=== PATIENT | male | born 1995 | race Caucasian/White ===

== ENCOUNTER 2016-05-05 10:18 | Emergency (ER) | payer OTHER ==
[2016-05-05] MEDS ORDERED: IPRATROPIUM-ALBUTEROL 3 ML NEB INHALATION STA (10:25)
--- NOTE | 2016-05-05 10:27 | ED ---
SOB HPI - General Stated Complaint: ASTHMA, DAVID Time Seen by Provider: 05/05/16 10:22 Source: patient, RN notes reviewed Mode of arrival: ambulatory Limitations: no limitations - History of Present Illness Initial Comments: 21-year-old male presents emergency Department chief complaint shortness of breath. Patient states he woke up 2 hours ago with shortness of breath. Patient states that he has asthma and is a daily smoker. Patient states that his girlfriend throughout his inhaler on accident. Patient states he does not have his rescue inhaler. Patient states he had no problems yesterday denies any fever, chills. Denies any runny nose, congestion, productive cough. Patient states he has no difficulty swallowing he states he just wheezing and having shortness of breath. Patient denies any abdominal complaints including nausea, vomiting diarrhea constipation. Patient is not taking any other medications prescribed or [id number]. He does have an ALLERGY to amoxicillin. - Related Data Previous Rx's Medication Instructions Recorded Albuterol Nebulized [Ventolin 2.5 mg INHALATION Q4H PRN #25 nebu 05/05/16 Nebulized] methylPREDNISolone [Medrol Dose 4 mg PO DIRECTED #1 pack 05/05/16 Pack] Allergies Allergy/AdvReac Type Severity Reaction Status Date / Time amoxicillin AdvReac Unknown Verified 01/02/16 11:16 Childhood Review of Systems ROS Statement: Those systems with pertinent positive or pertinent negative responses have been documented in the HPI. ROS Other: All systems not noted in ROS Statement are negative. Past Medical History Past Medical History: Asthma Additional Past Medical History / Comment(s): scoliosis History of Any Multi-Drug Resistant Organisms: None Reported Past Surgical History: No Surgical Hx Reported Past Psychological History: No Psychological Hx Reported Smoking Status: Former smoker Past Alcohol Use History: Occasional Past Drug Use History: None Reported General Exam General appearance: alert, in no apparent distress Head exam: Present: atraumatic, normocephalic, normal inspection Eye exam: Present: normal appearance, PERRL, EOMI. Absent: scleral icterus, conjunctival injection, periorbital swelling ENT exam: Present: normal exam, normal oropharynx, mucous membranes moist, TM's normal bilaterally, normal external ear exam Neck exam: Present: normal inspection, full ROM. Absent: tenderness, meningismus, lymphadenopathy Respiratory exam: Present: respiratory distress (Mild), wheezes (Bilateral throughout), accessory muscle use (Minimal). Absent: normal lung sounds bilaterally, rales, rhonchi, stridor Cardiovascular Exam: Present: normal rhythm, tachycardia, normal heart sounds. Absent: systolic murmur, diastolic murmur, rubs, gallop, clicks Neurological exam: Present: alert, oriented X3, CN II-XII intact Skin exam: Present: warm, dry, intact, normal color. Absent: rash Course Vital Signs 05/05/16 05/05/16 05/05/16 10:28 10:33 10:34 Temperature 98.7 F Pulse Rate 123 H 123 H Respiratory 26 H 28 H Rate Blood Pressure 134/69 O2 Sat by Pulse 92 L Oximetry 05/05/16 10:46 Temperature Pulse Rate 120 H Respiratory Rate Blood Pressure O2 Sat by Pulse Oximetry Medical Decision Making - Medical Decision Making 21-year-old male presented emergency department for asthma, shortness breath. Patient is a daily smoker counseled in detail greater than 3 minutes to stop smoking. Patient states that he feels better after neb treatment and is refusing any other treatment at this time refusing steroid shot, x-ray. Patient understands the risk. Patient was given steroids, inhalers. Disposition Clinical Impression: Asthma exacerbation, Tobacco dependence Disposition: HOME SELF-CARE Condition: Stable Instructions: Asthma (ED) Additional Instructions: Please stop smoking.Please return to the Emergency Department if symptoms worsen or any other concerns. Prescriptions: Albuterol Nebulized [Ventolin Nebulized] 2.5 mg INHALATION Q4H PRN #25 nebu PRN Reason: difficulty in breathing methylPREDNISolone [Medrol Dose Pack] 4 mg PO DIRECTED #1 pack Time of Disposition: 11:06
[2016-05-05 11:23] VITALS: BP 157/74; PULSE 129; RESP 15; TEMP 100.6
== END 2016-05-05 11:26 | disposition home or self-care (01) ==
LOC: EC 10:18
DX: J45.901 Unspecified asthma with (acute) exacerbation (principal); Z87.891 Personal history of nicotine dependence; Z88.0 Allergy status to penicillin
CPT/HCPCS: 94640; 99284

== ENCOUNTER 2020-07-05 07:23 | Emergency (ER) | payer OTHER ==
[2020-07-05 07:32] VITALS: RESP 18
[2020-07-05] MEDS ORDERED: SODIUM CHLORIDE 0.9% 500 ML 500 ML IV ONE (07:44)
[2020-07-05] MEDS ORDERED: SODIUM CHLORIDE 0.9% 1,000 ML IV ONE (07:44)
[2020-07-05] MEDS ORDERED: ONDANSETRON 4 MG/2 ML VIAL IVP STA (07:44)
[2020-07-05] MEDS ORDERED: IBUPROFEN 600 MG TAB PO STA (07:45)
[2020-07-05] MEDS ORDERED: ACETAMINOPHEN TAB 500 MG TAB PO STA (07:45)
--- NOTE | 2020-07-05 07:59 | ED ---
General Adult HPI - General Chief complaint: Upper Respiratory Infection Stated complaint: Headache, Weakness Time Seen by Provider: 07/05/20 07:30 Source: patient, RN notes reviewed, old records reviewed Mode of arrival: ambulatory Limitations: no limitations - History of Present Illness Initial comments: This is a 25-year-old male who presents emergency Department complaining of not feeling well since . Patient states he has been sweating a lot. Patient states he has a cough but has no shortness of breath. Patient states he has vomited a couple times but no diarrhea. Patient denies any loss of taste smile. Patient states he just feels terrible. Patient denies any chest pain. Patient denies any back pain. Patient denies abdominal pain. - Related Data Previous Rx's Medication Instructions Recorded Albuterol Nebulized [Ventolin 2.5 mg INHALATION Q4H PRN #25 nebu 05/05/16 Nebulized] methylPREDNISolone [Medrol Dose 4 mg PO DIRECTED #1 pack 05/05/16 Pack] Allergies Allergy/AdvReac Type Severity Reaction Status Date / Time amoxicillin AdvReac Unknown Verified 07/05/20 07:32 Childhood Review of Systems ROS Statement: Those systems with pertinent positive or pertinent negative responses have been documented in the HPI. ROS Other: All systems not noted in ROS Statement are negative. Past Medical History Past Medical History: Asthma Additional Past Medical History / Comment(s): scoliosis History of Any Multi-Drug Resistant Organisms: MRSA Date of last positivie culture/infection: 2009 MDRO Source:: arm Past Surgical History: No Surgical Hx Reported Past Psychological History: No Psychological Hx Reported Smoking Status: Never smoker Past Alcohol Use History: Occasional Past Drug Use History: None Reported General Exam - General Exam Comments Initial Comments: GENERAL: Patient is well-developed and well-nourished. Patient is nontoxic and well- hydrated and is in mild distress. ENT: Neck is soft and supple. No significant lymphadenopathy is noted. Oropharynx is clear. Moist mucous membranes. Neck has full range of motion without eliciting any pain. EYES: The sclera were anicteric and conjunctiva were pink and moist. Extraocular movements were intact and pupils were equal round and reactive to light. Eyelids were unremarkable. PULMONARY: Unlabored respirations. Good breath sounds bilaterally. No audible rales rhonchi or wheezing was noted. CARDIOVASCULAR: There is a regular rate and rhythm without any murmurs gallops or rubs. ABDOMEN: Soft and nontender with normal bowel sounds. No palpable organomegaly was noted. There is no palpable pulsatile mass. SKIN: Skin is clear with no lesions or rashes and otherwise unremarkable. NEUROLOGIC: Patient is alert and oriented x3. Cranial nerves II through XII are grossly intact. Motor and sensory are also intact. Normal speech, volume and content. Symmetrical smile. MUSCULOSKELETAL: Normal extremities with adequate strength and full range of motion. No lower extremity swelling or edema. No calf tenderness. LYMPHATICS: No significant lymphadenopathy is noted PSYCHIATRIC: Normal psychiatric evaluation. Limitations: no limitations Course Vital Signs 07/05/20 07/05/20 07:29 09:04 Temperature 98.4 F 99.9 F H Pulse Rate 114 H 96 Respiratory 18 18 Rate Blood Pressure 106/75 98/57 O2 Sat by Pulse 97 96 Oximetry Medical Decision Making - Lab Data Result diagrams: 07/05/20 07:51 07/05/20 07:51 Lab Results 07/05/20 07/05/20 07/05/20 Range/Units 07:51 07:51 07:51 WBC 5.4 (3.8-10.6) k/uL RBC 5.32 (4.30-5.90) m/uL Hgb 14.2 (13.0-17.5) gm/dL Hct 42.6 (39.0-53.0) % MCV 80.0 (80.0-100.0) fL MCH 26.7 (25.0-35.0) pg MCHC 33.4 (31.0-37.0) g/dL RDW 12.7 (11.5-15.5) % Plt Count 193 (150-450) k/uL MPV 7.4 Neutrophils % 83 % Lymphocytes % 4 % Monocytes % 4 % Eosinophils % 9 % Basophils % 1 % Neutrophils # 4.5 (1.3-7.7) k/uL Lymphocytes # 0.2 L (1.0-4.8) k/uL Monocytes # 0.2 (0-1.0) k/uL Eosinophils # 0.5 (0-0.7) k/uL Basophils # 0.0 (0-0.2) k/uL Sodium 129 L (137-145) mmol/L Potassium 4.7 (3.5-5.1) mmol/L Chloride 94 L (98-107) mmol/L Carbon Dioxide 27 (22-30) mmol/L Anion Gap 8 mmol/L BUN 14 (9-20) mg/dL Creatinine 1.03 (0.66-1.25) mg/dL Est GFR (CKD-EPI)AfAm >90 (>60 ml/min/1.73 sqM) Est GFR (CKD-EPI)NonAf >90 (>60 ml/min/1.73 sqM) Glucose 141 H (74-99) mg/dL Calcium 8.7 (8.4-10.2) mg/dL Total Bilirubin 0.4 (0.2-1.3) mg/dL AST 34 (17-59) U/L ALT 27 (4-49) U/L Alkaline Phosphatase 102 (38-126) U/L Total Protein 6.9 (6.3-8.2) g/dL Albumin 4.2 (3.5-5.0) g/dL Coronavirus (PCR) Not Detected (Not Detectd) Influenza Type A RNA (Not Detectd) Influenza Type B (PCR) (Not Detectd) 07/05/20 Range/Units 08:03 WBC (3.8-10.6) k/uL RBC (4.30-5.90) m/uL Hgb (13.0-17.5) gm/dL Hct (39.0-53.0) % MCV (80.0-100.0) fL MCH (25.0-35.0) pg MCHC (31.0-37.0) g/dL RDW (11.5-15.5) % Plt Count (150-450) k/uL MPV Neutrophils % % Lymphocytes % % Monocytes % % Eosinophils % % Basophils % % Neutrophils # (1.3-7.7) k/uL Lymphocytes # (1.0-4.8) k/uL Monocytes # (0-1.0) k/uL Eosinophils # (0-0.7) k/uL Basophils # (0-0.2) k/uL Sodium (137-145) mmol/L Potassium (3.5-5.1) mmol/L Chloride (98-107) mmol/L Carbon Dioxide (22-30) mmol/L Anion Gap mmol/L BUN (9-20) mg/dL Creatinine (0.66-1.25) mg/dL Est GFR (CKD-EPI)AfAm (>60 ml/min/1.73 sqM) Est GFR (CKD-EPI)NonAf (>60 ml/min/1.73 sqM) Glucose (74-99) mg/dL Calcium (8.4-10.2) mg/dL Total Bilirubin (0.2-1.3) mg/dL AST (17-59) U/L ALT (4-49) U/L Alkaline Phosphatase (38-126) U/L Total Protein (6.3-8.2) g/dL Albumin (3.5-5.0) g/dL Coronavirus (PCR) (Not Detectd) Influenza Type A RNA Not Detected (Not Detectd) Influenza Type B (PCR) Not Detected (Not Detectd) Disposition Clinical Impression: Viral syndrome, Hyponatremia Disposition: HOME SELF-CARE Condition: Good Instructions (If sedation given, give patient instructions): Viral Syndrome (ED) Additional Instructions: Patient should take Zofran as prescribed Is patient prescribed a controlled substance at d/c from ED?: No Referrals: Tori Last MD [Primary Care Provider] - 1-2 days Time of Disposition: 09:52
[2020-07-05 08:04] LABS: Basophils % (A) 1 %; Eosinophils # (A) 0.5 k/uL (0-0.7); Eosinophils % (A) 9 %; HCT 42.6 % (39.0-53.0); HGB 14.2 gm/dL (13.0-17.5); Lymphocytes # (A) 0.2 k/uL (1.0-4.8); Lymphocytes % (A) 4 %; MCH 26.7 pg (25.0-35.0); MCHC 33.4 g/dL (31.0-37.0); Mean Platelet Volume 7.4; Monocytes # (A) 0.2 k/uL (0-1.0); Monocytes % (A) 4 %; Neutrophils # (A) 4.5 k/uL (1.3-7.7); Neutrophils % (A) 83 %; Platelet Count 193 k/uL (150-450); RBC 5.32 m/uL (4.30-5.90); RDW 12.7 % (11.5-15.5); WBC 5.4 k/uL (3.8-10.6)
[2020-07-05 08:19] LABS: ALT 27 U/L (4-49); AST 34 U/L (17-59); African American GFR (CKD) >90 (>60 ml/min/1.73 sqM); Albumin 4.2 g/dL (3.5-5.0); Alkaline Phosphatase 102 U/L (38-126); Anion Gap 8 mmol/L; Blood Urea Nitrogen 14 mg/dL (9-20); Calcium 8.7 mg/dL (8.4-10.2); Carbon Dioxide 27 mmol/L (22-30); Chloride 94 mmol/L (98-107); Glucose 141 mg/dL (74-99); Non-African American GFR(CKD) >90 (>60 ml/min/1.73 sqM); Potassium 4.7 mmol/L (3.5-5.1); Sodium 129 mmol/L (137-145); Total Bilirubin 0.4 mg/dL (0.2-1.3); Total Protein 6.9 g/dL (6.3-8.2)
--- NOTE | 2020-07-05 09:41 | XR ---
EXAMINATION TYPE: XR chest 2V DATE OF EXAM: 07/05/2020 COMPARISON: NONE HISTORY: Shortness of breath and weakness. TECHNIQUE: Frontal and lateral views of the chest are obtained. FINDINGS: There is chronic parenchymal changes bilaterally without suspicious focal air space opacit y, pleural effusion, or pneumothorax seen. The cardiac silhouette size is within normal limits. Th e osseous structures are intact. IMPRESSION: No acute cardiopulmonary process.
[2020-07-05] MEDS ORDERED: ONDANSETRON 4 MG ODT STARTER PACK 2 TAB BTL PO STA (09:53)
[2020-07-05 10:14] VITALS: BP 148/78; PULSE 89; TEMP 99
== END 2020-07-05 10:12 | disposition home or self-care (01) ==
LOC: EC 07:23
DX: B34.9 Viral infection, unspecified (principal); E87.1 Hypo-osmolality and hyponatremia; R61 Generalized hyperhidrosis; J45.909 Unspecified asthma, uncomplicated; Z79.51 Long term (current) use of inhaled steroids; Z20.822 Contact with and (suspected) exposure to COVID-19
CPT/HCPCS: 36415; 80053; 85025; 87502; 87635; 71046; 99285; 96374; 96361; J2405; S0119

== ENCOUNTER 2020-08-23 | Emergency (ER) | payer OTHER | END 2020-08-23 16:14 | disposition left against medical advice (07) ==

== ENCOUNTER 2020-10-03 04:55 | Emergency (ER) | payer OTHER ==
[2020-10-03 05:15] VITALS: BP 132/85; PULSE 76; RESP 20; TEMP 98.1
--- NOTE | 2020-10-03 05:20 | ED ---
Nausea/Vomiting/Diarrhea HPI - General Chief complaint: Nausea/Vomiting/Diarrhea Stated complaint: NVD Time Seen by Provider: 10/03/20 05:00 Source: patient, RN notes reviewed, old records reviewed Mode of arrival: ambulatory - History of Present Illness Initial comments: This is a 25-year-old male to ER today. He presents today for evaluation regards to persistent nausea with diarrhea. Diarrhea this significant. 3 days of diarrhea mucousy in general. Patient has no fevers. No sick contacts no travel she'll family members with similar complaint. Patient is Rema had c oronavirus denies possibility of coronavirus currently and no recent antibiotic use. Afebrile with no abdominal pain MD complaint: nausea, diarrhea -: days(s) (3) Description of Diarrhea: water, mucous Associated Abdominal Pain: No Radiation: none Severity: moderate Severity scale (1-10): 6 Quality: cramping Consistency: constant Improves with: none Worsens with: none Context: other (none) Associated Symptoms: loss of appetite, weakness - Related Data Previous Rx's Medication Instructions Recorded Albuterol Nebulized [Ventolin 2.5 mg INHALATION Q4H PRN #25 nebu 05/05/16 Nebulized] methylPREDNISolone [Medrol Dose 4 mg PO DIRECTED #1 pack 05/05/16 Pack] Allergies Allergy/AdvReac Type Severity Reaction Status Date / Time amoxicillin AdvReac Unknown Verified 10/03/20 05:15 Childhood Review of Systems ROS Statement: Those systems with pertinent positive or pertinent negative responses have been documented in the HPI. ROS Other: All systems not noted in ROS Statement are negative. Past Medical History Past Medical History: Asthma Additional Past Medical History / Comment(s): scoliosis History of Any Multi-Drug Resistant Organisms: MRSA Date of last positivie culture/infection: 2009 MDRO Source:: arm Past Surgical History: No Surgical Hx Reported Past Psychological History: No Psychological Hx Reported Smoking Status: Never smoker Past Alcohol Use History: Occasional Past Drug Use History: None Reported General Exam General appearance: alert, in no apparent distress Head exam: Present: atraumatic, normocephalic, normal inspection Eye exam: Present: normal appearance, PERRL, EOMI. Absent: scleral icterus, conjunctival injection, periorbital swelling ENT exam: Present: normal exam, mucous membranes moist Neck exam: Present: normal inspection. Absent: tenderness, meningismus, lymphadenopathy Respiratory exam: Present: normal lung sounds bilaterally. Absent: respiratory distress, wheezes, rales, rhonchi, stridor Cardiovascular Exam: Present: regular rate, normal rhythm, normal heart sounds. Absent: systolic murmur, diastolic murmur, rubs, gallop, clicks GI/Abdominal exam: Present: soft, normal bowel sounds. Absent: distended, tenderness, guarding, rebound, rigid Extremities exam: Present: normal inspection, full ROM, normal capillary refill. Absent: tenderness, pedal edema, joint swelling, calf tenderness Back exam: Present: normal inspection Neurological exam: Present: alert, oriented X3, CN II-XII intact Psychiatric exam: Present: normal affect, normal mood Skin exam: Present: warm, dry, intact, normal color. Absent: rash Course Vital Signs 10/03/20 05:08 Temperature 98.1 F Pulse Rate 76 Respiratory 20 Rate Blood Pressure 132/85 O2 Sat by Pulse 96 Oximetry - Reevaluation(s) Reevaluation #1: 10/03/20 05:40 Medical record is reviewed Reevaluation #2: 10/03/20 05:40 Patient feels comfortable trying outpatient therapy Reevaluation #3: 10/03/20 05:40 Patient informed results questions answered return if fever abdominal pain or blood in the stool develops Medical Decision Making - Medical Decision Making 25 male to the ER with persistent diarrhea. 3 days of diarrhea with nausea. No significant cause found here in the ER patient can be discharged home Disposition Clinical Impression: Dehydration, Gastroenteritis Disposition: HOME SELF-CARE Condition: Good Instructions (If sedation given, give patient instructions): Acute Diarrhea (ED) Is patient prescribed a controlled substance at d/c from ED?: No Referrals: Tori Last MD [Primary Care Provider] - 1-2 days
[2020-10-03] MEDS ORDERED: ONDANSETRON 4 MG ODT STARTER PACK 2 TAB BTL PO STA (05:35)
[2020-10-03] MEDS ORDERED: DIPHENOX-ATROP STARTER PACK 8 TAB BTL PO STA (05:35)
[2020-10-03] MEDS ORDERED: ONDANSETRON ODT 4 MG TAB PO STA (05:35)
[2020-10-03] MEDS ORDERED: DIPHENOX-ATROP 2.5-0.025 MG 1 EACH TAB PO STA (05:35)
== END 2020-10-03 06:02 | disposition home or self-care (01) ==
LOC: EC 04:55
DX: K52.9 Noninfective gastroenteritis and colitis, unspecified (principal); E86.0 Dehydration; J45.909 Unspecified asthma, uncomplicated; Z79.51 Long term (current) use of inhaled steroids
CPT/HCPCS: 99283; S0119

== ENCOUNTER 2020-10-13 03:26 | Emergency (ER) | payer OTHER ==
--- NOTE | 2020-10-13 03:48 | ED ---
Chest Pain HPI - General Chief Complaint: Chest Pain Stated Complaint: Chest Pain Time Seen by Provider: 10/13/20 03:38 Source: patient Mode of arrival: ambulatory Limitations: no limitations - History of Present Illness MD Complaint: chest pain -: hour(s) Onset: during rest Pain Location: right chest Pain Radiation: none Severity: moderate Quality: aching Consistency: constant Improves With: nothing Worsens With: movement Treatments Prior to Arrival: none - Related Data Previous Rx's Medication Instructions Recorded Albuterol Nebulized [Ventolin 2.5 mg INHALATION Q4H PRN #25 nebu 05/05/16 Nebulized] methylPREDNISolone [Medrol Dose 4 mg PO DIRECTED #1 pack 05/05/16 Pack] Ibuprofen [Motrin] 600 mg PO Q8HR PRN #20 tab 10/13/20 Allergies Allergy/AdvReac Type Severity Reaction Status Date / Time amoxicillin AdvReac Unknown Verified 10/13/20 03:37 Childhood Review of Systems ROS Statement: Those systems with pertinent positive or pertinent negative responses have been documented in the HPI. ROS Other: All systems not noted in ROS Statement are negative. Constitutional: Denies: fever, chills Respiratory: Denies: cough, dyspnea Cardiovascular: Reports: as per HPI, chest pain. Denies: palpitations, orthopnea, syncope Gastrointestinal: Denies: abdominal pain, vomiting, diarrhea Genitourinary: Denies: dysuria Skin: Denies: rash Neurological: Denies: headache, weakness, numbness, paresthesias EKG Findings - EKG Results: EKG: interpreted by ERMD, sinus rhythm (Rate 70 bpm), normal axis - Blocks, [place], Hypertrophy, ST Abn: AV and intraventricular conduction: right bundle branch block (fixed/intermittent, complete/incomplete) (Incomplete) Repolarization changes or abnormalities: nonspecific abnormality, ST segment, and/or T wave Past Medical History Past Medical History: Asthma, COPD Additional Past Medical History / Comment(s): scoliosis History of Any Multi-Drug Resistant Organisms: MRSA Date of last positivie culture/infection: 2009 MDRO Source:: arm Past Surgical History: No Surgical Hx Reported Past Psychological History: No Psychological Hx Reported Smoking Status: Current some day smoker Past Alcohol Use History: Occasional Past Drug Use History: None Reported General Exam Limitations: no limitations General appearance: alert, in no apparent distress Head exam: Present: atraumatic, normocephalic Eye exam: Present: normal appearance. Absent: scleral icterus, conjunctival injection Neck exam: Present: normal inspection Respiratory exam: Present: normal lung sounds bilaterally, chest wall tenderness. Absent: respiratory distress, wheezes, rales, rhonchi, stridor Cardiovascular Exam: Present: regular rate, normal rhythm, normal heart sounds. Absent: systolic murmur, diastolic murmur, rubs, gallop GI/Abdominal exam: Present: soft. Absent: distended, tenderness, guarding, rebound, rigid, mass Extremities exam: Present: normal inspection, normal capillary refill. Absent: pedal edema, calf tenderness Back exam: Present: normal inspection. Absent: CVA tenderness (R), CVA tenderness (L) Neurological exam: Present: alert Skin exam: Present: warm, dry, intact, normal color. Absent: rash Course Vital Signs 10/13/20 10/13/20 03:32 03:40 Temperature 98.2 F Pulse Rate 65 75 Respiratory 22 20 Rate Blood Pressure 126/84 130/96 O2 Sat by Pulse 96 99 Oximetry Disposition Clinical Impression: Chest wall pain Disposition: HOME SELF-CARE Condition: Good Instructions (If sedation given, give patient instructions): Chest Wall Pain (ED) Prescriptions: Ibuprofen [Motrin] 600 mg PO Q8HR PRN #20 tab PRN Reason: Pain Is patient prescribed a controlled substance at d/c from ED?: No Referrals: Tori Last MD [Primary Care Provider] - 1-2 days
[2020-10-13] MEDS ORDERED: IBUPROFEN 400 MG TAB PO STA (03:49)
[2020-10-13] MEDS ORDERED: ACETAMINOPHEN TAB 325 MG TAB PO STA (03:49)
[2020-10-13 03:52] VITALS: RESP 20
--- NOTE | 2020-10-13 04:07 | XR ---
EXAMINATION TYPE: XR chest 2V DATE OF EXAM: 10/13/2020 COMPARISON: 07/05/2020 HISTORY: Chest pain TECHNIQUE: FINDINGS: Heart and mediastinum are normal. Lungs are clear. Diaphragm is normal. Bony thorax is inta ct. Pulmonary vascularity is normal. IMPRESSION: Normal chest. No change.
[2020-10-13 04:52] VITALS: BP 125/92; PULSE 76; TEMP 97.9
== END 2020-10-13 04:52 | disposition home or self-care (01) ==
LOC: EC 03:26
DX: R07.89 Other chest pain (principal); J44.9 Chronic obstructive pulmonary disease, unspecified; F17.200 Nicotine dependence, unspecified, uncomplicated; Z88.0 Allergy status to penicillin
CPT/HCPCS: 71046; 93005; 99285

== ENCOUNTER 2020-11-27 06:59 | Emergency (ER) | payer OTHER ==
[2020-11-27 07:06] VITALS: TEMP 97.9
[2020-11-27] MEDS ORDERED: IPRATROPIUM-ALBUTEROL 3 ML NEB INHALATION STA (07:33)
[2020-11-27] MEDS ORDERED: SODIUM CHLORIDE 0.9% 1,000 ML IV ONE (07:33)
[2020-11-27] MEDS ORDERED: SODIUM CHLORIDE 0.9% 500 ML 500 ML IV ONE (07:33)
[2020-11-27] MEDS ORDERED: ONDANSETRON 4 MG/2 ML VIAL IVP STA (07:33)
[2020-11-27 07:51] LABS: Basophils % (A) 0 %; Eosinophils # (A) 0.2 k/uL (0-0.7); Eosinophils % (A) 1 %; HCT 42.4 % (39.0-53.0); HGB 14.5 gm/dL (13.0-17.5); Lymphocytes # (A) 0.5 k/uL (1.0-4.8); Lymphocytes % (A) 3 %; MCH 28.4 pg (25.0-35.0); MCHC 34.3 g/dL (31.0-37.0); MCV 82.8 fL (80.0-100.0); Mean Platelet Volume 7.3; Monocytes # (A) 0.4 k/uL (0-1.0); Monocytes % (A) 3 %; Neutrophils % (A) 92 %; Platelet Count 230 k/uL (150-450); RBC 5.12 m/uL (4.30-5.90); RDW 12.8 % (11.5-15.5); WBC 13.1 k/uL (3.8-10.6)
--- NOTE | 2020-11-27 08:03 | ED ---
General Adult HPI - General Chief complaint: Shortness of Breath Stated complaint: Difficulty Breathing, Vomiting Time Seen by Provider: 11/27/20 07:05 Source: patient, RN notes reviewed, old records reviewed Mode of arrival: ambulatory - History of Present Illness Initial comments: This is a 25-year-old male presents emergency department stating that yesterday morning he started having a sore throat is gotten progressively worse. Patient also states she's developed a cough and he feels short of breath per patient states his past medical history significant for asthma. Patient states she used to smoke but has quit. Patient denies any fever or chills. Patient states this morning he did vomit once. Patient denies any diarrhea. Patient denies abdominal pain. Patient denies any chest pain or palpitations. Patient was at [facility] but I could not get him to tell me exactly what they did. Patient was reluctant to give me any details about his visit to [facility] yesterday. - Related Data Previous Rx's Medication Instructions Recorded Albuterol Nebulized [Ventolin 2.5 mg INHALATION Q4H PRN #25 nebu 05/05/16 Nebulized] methylPREDNISolone [Medrol Dose 4 mg PO DIRECTED #1 pack 05/05/16 Pack] Ibuprofen [Motrin] 600 mg PO Q8HR PRN #20 tab 10/13/20 Albuterol Inhaler [Ventolin Hfa 2 puff INHALATION RT-QID #18 gm 11/27/20 Inhaler] Azithromycin [Zithromax Tri-Ronnell] 500 mg PO DAILY #3 tab 11/27/20 predniSONE [Deltasone] 40 mg PO DAILY #8 tab 11/27/20 Allergies Allergy/AdvReac Type Severity Reaction Status Date / Time amoxicillin AdvReac Unknown Verified 11/27/20 07:06 Childhood Review of Systems ROS Statement: Those systems with pertinent positive or pertinent negative responses have been documented in the HPI. ROS Other: All systems not noted in ROS Statement are negative. Past Medical History Past Medical History: Asthma, COPD Additional Past Medical History / Comment(s): scoliosis History of Any Multi-Drug Resistant Organisms: MRSA Date of last positivie culture/infection: 2009 MDRO Source:: arm Past Surgical History: No Surgical Hx Reported Past Psychological History: No Psychological Hx Reported Smoking Status: Current some day smoker Past Alcohol Use History: Occasional Past Drug Use History: None Reported General Exam - General Exam Comments Initial Comments: GENERAL: Patient is well-developed and well-nourished. Patient is nontoxic and well- hydrated and is in mild distress. ENT: Neck is soft and supple. No significant lymphadenopathy is noted. Tonsils are large erythematous. Dry mucous membranes. Neck has full range of motion without eliciting any pain. EYES: The sclera were anicteric and conjunctiva were pink and moist. Extraocular movements were intact and pupils were equal round and reactive to light. Eyelids were unremarkable. PULMONARY: Unlabored respirations. Good breath sounds bilaterally. No audible rales rhonchi or wheezing was noted. CARDIOVASCULAR: Patient is tachycardic at about 110 beats a minute. ABDOMEN: Soft and nontender with normal bowel sounds. SKIN: Skin is clear with no lesions or rashes and otherwise unremarkable. NEUROLOGIC: Patient is alert and oriented x3. Cranial nerves II through XII are grossly intact. Motor and sensory are also intact. Normal speech, volume and content. Symmetrical smile. MUSCULOSKELETAL: Normal extremities with adequate strength and full range of motion. No lower extremity swelling or edema. No calf tenderness. LYMPHATICS: No significant lymphadenopathy is noted PSYCHIATRIC: Normal psychiatric evaluation. Course Vital Signs 11/27/20 11/27/20 11/27/20 07:03 08:26 08:40 Temperature 97.9 F Pulse Rate 115 H 107 H 110 H Respiratory 18 Rate Blood Pressure 142/90 O2 Sat by Pulse 93 L Oximetry Medical Decision Making - Medical Decision Making Patient's chest x-ray showed faint infiltrate on the left. I gave the patient a gram of Rocephin. Patient received a breathing treatment. Patient received steroids in the emergency department. - Lab Data Result diagrams: 11/27/20 07:44 11/27/20 07:44 Lab Results 11/27/20 11/27/20 11/27/20 Range/Units 07:44 07:44 07:44 WBC 13.1 H (3.8-10.6) k/uL RBC 5.12 (4.30-5.90) m/uL Hgb 14.5 (13.0-17.5) gm/dL Hct 42.4 (39.0-53.0) % MCV 82.8 (80.0-100.0) fL MCH 28.4 (25.0-35.0) pg MCHC 34.3 (31.0-37.0) g/dL RDW 12.8 (11.5-15.5) % Plt Count 230 (150-450) k/uL MPV 7.3 Neutrophils % 92 % Lymphocytes % 3 % Monocytes % 3 % Eosinophils % 1 % Basophils % 0 % Neutrophils # 12.0 H (1.3-7.7) k/uL Lymphocytes # 0.5 L (1.0-4.8) k/uL Monocytes # 0.4 (0-1.0) k/uL Eosinophils # 0.2 (0-0.7) k/uL Basophils # 0.0 (0-0.2) k/uL Sodium 137 (137-145) mmol/L Potassium 4.0 (3.5-5.1) mmol/L Chloride 98 (98-107) mmol/L Carbon Dioxide 28 (22-30) mmol/L Anion Gap 11 mmol/L BUN 14 (9-20) mg/dL Creatinine 0.65 L (0.66-1.25) mg/dL Est GFR (CKD-EPI)AfAm >90 (>60 ml/min/1.73 sqM) Est GFR (CKD-EPI)NonAf >90 (>60 ml/min/1.73 sqM) Glucose 129 H (74-99) mg/dL Calcium 9.8 (8.4-10.2) mg/dL Magnesium 1.8 (1.6-2.3) mg/dL Total Bilirubin 0.9 (0.2-1.3) mg/dL AST 28 (17-59) U/L ALT 29 (4-49) U/L Alkaline Phosphatase 77 (38-126) U/L Total Protein 7.3 (6.3-8.2) g/dL Albumin 4.4 (3.5-5.0) g/dL Group A Strep Rapid Negative (Negative) Disposition Clinical Impression: Pneumonia Disposition: HOME SELF-CARE Instructions (If sedation given, give patient instructions): Pneumonia (ED), Bronchospasm (ED) Prescriptions: predniSONE [Deltasone] 40 mg PO DAILY #8 tab Albuterol Inhaler [Ventolin Hfa Inhaler] 2 puff INHALATION RT-QID #18 gm Azithromycin [Zithromax Tri-Ronnell] 500 mg PO DAILY #3 tab Is patient prescribed a controlled substance at d/c from ED?: No Referrals: None,Stated [Primary Care Provider] - 1-2 days Time of Disposition: 08:48
[2020-11-27 08:08] LABS: ALT 29 U/L (4-49); AST 28 U/L (17-59); African American GFR (CKD) >90 (>60 ml/min/1.73 sqM); Albumin 4.4 g/dL (3.5-5.0); Alkaline Phosphatase 77 U/L (38-126); Anion Gap 11 mmol/L; Blood Urea Nitrogen 14 mg/dL (9-20); Calcium 9.8 mg/dL (8.4-10.2); Carbon Dioxide 28 mmol/L (22-30); Chloride 98 mmol/L (98-107); Glucose 129 mg/dL (74-99); Magnesium 1.8 mg/dL (1.6-2.3); Non-African American GFR(CKD) >90 (>60 ml/min/1.73 sqM); Sodium 137 mmol/L (137-145); Total Bilirubin 0.9 mg/dL (0.2-1.3); Total Protein 7.3 g/dL (6.3-8.2)
--- NOTE | 2020-11-27 08:29 | XR ---
EXAMINATION TYPE: XR chest 2V DATE OF EXAM: 11/27/2020 COMPARISON: 10/13/2020 INDICATION: Short of breath asthma COPD TECHNIQUE: Frontal and lateral views of the chest are obtained. FINDINGS: The heart size is normal. The pulmonary vasculature is normal. Very subtle right lower lobe infiltrate may be present, unchanged from comparison. Correlate for subs egmental atelectasis or early pneumonia. Follow-up can be performed as clinically indicated. IMPRESSION: 1. Subtle minimal infiltrate left lower lobe, correlate for subsegmental atelectasis or early pneumon ia.
[2020-11-27] MEDS ORDERED: methylPREDNISolone SOD SUCCI 125 MG/2 ML VIAL IV STA (08:42)
[2020-11-27] MEDS ORDERED: cefTRIAXone IN SWFI 1,000 MG/10 ML SYRINGE IVP STA (08:42)
[2020-11-27 09:07] VITALS: BP 122/76; PULSE 88; RESP 16
== END 2020-11-27 09:06 | disposition home or self-care (01) ==
LOC: EC 06:59
DX: J18.9 Pneumonia, unspecified organism (principal); J44.9 Chronic obstructive pulmonary disease, unspecified; F17.200 Nicotine dependence, unspecified, uncomplicated; Z79.1 Long term (current) use of non-steroidal anti-inflammatories (NSAID); Z79.51 Long term (current) use of inhaled steroids; Z79.52 Long term (current) use of systemic steroids; Z88.0 Allergy status to penicillin
CPT/HCPCS: 99285 ×2; 96374 ×2; 96375 ×3; 36415; 94640; 80053; 83735; 85025; 87081; 87430; 71046; J2930; J2405; J0696

== ENCOUNTER 2021-06-12 14:25 | Emergency (ER) | payer OTHER ==
[2021-06-12 14:39] VITALS: BP 122/59; PULSE 66; RESP 18; TEMP 98.1
--- NOTE | 2021-06-12 15:33 | ED ---
General Adult HPI - General Chief complaint: Recheck/Abnormal Lab/Rx Stated complaint: Medication refill Time Seen by Provider: 06/12/21 15:11 Source: patient Mode of arrival: ambulatory Limitations: no limitations - History of Present Illness Initial comments: Patient is a 26-year-old male who presents to the emergency department seeking medication for herpes labialis prophylactic medication. Patient states his girlfriend currently has a oral cold sore. Patient has history of cold sores and states he usually develops them after she has an outbreak. He currently does not have any cold sores or lip pain. Patient states his primary care provider is open today for prophylactic medication. He has no other concerns. - Related Data Previous Rx's Medication Instructions Recorded Albuterol Nebulized [Ventolin 2.5 mg INHALATION Q4H PRN #25 nebu 05/05/16 Nebulized] methylPREDNISolone [Medrol Dose 4 mg PO DIRECTED #1 pack 05/05/16 Pack] Ibuprofen [Motrin] 600 mg PO Q8HR PRN #20 tab 10/13/20 Albuterol Inhaler [Ventolin Hfa 2 puff INHALATION RT-QID #18 gm 11/27/20 Inhaler] Azithromycin [Zithromax Tri-Ronnell] 500 mg PO DAILY #3 tab 11/27/20 predniSONE [Deltasone] 40 mg PO DAILY #8 tab 11/27/20 Acyclovir 400 mg PO TID #15 tablet 06/12/21 Allergies Allergy/AdvReac Type Severity Reaction Status Date / Time amoxicillin AdvReac Unknown Verified 06/12/21 14:39 Childhood Review of Systems ROS Statement: Those systems with pertinent positive or pertinent negative responses have been documented in the HPI. ROS Other: All systems not noted in ROS Statement are negative. Past Medical History Past Medical History: Asthma, COPD Additional Past Medical History / Comment(s): scoliosis History of Any Multi-Drug Resistant Organisms: MRSA Date of last positivie culture/infection: 2009 MDRO Source:: arm Past Surgical History: No Surgical Hx Reported Past Psychological History: No Psychological Hx Reported Smoking Status: Current some day smoker Past Alcohol Use History: Occasional Past Drug Use History: Marijuana General Exam Limitations: no limitations General appearance: alert, in no apparent distress Head exam: Present: atraumatic, normocephalic, normal inspection Eye exam: Present: normal appearance, PERRL, EOMI. Absent: scleral icterus, conjunctival injection, periorbital swelling ENT exam: Present: normal oropharynx, other (Normal external lip exam with no vesicles or crusting) Respiratory exam: Present: normal lung sounds bilaterally. Absent: respiratory distress, wheezes, rales, rhonchi, stridor Cardiovascular Exam: Present: regular rate, normal rhythm, normal heart sounds. Absent: systolic murmur, diastolic murmur, rubs, gallop, clicks GI/Abdominal exam: Present: soft, normal bowel sounds. Absent: distended, tenderness, guarding, rebound, rigid Neurological exam: Present: alert, oriented X3, CN II-XII intact Psychiatric exam: Present: normal affect, normal mood Skin exam: Present: warm, dry, intact, normal color. Absent: rash Course Vital Signs 06/12/21 14:37 Temperature 98.1 F Pulse Rate 66 Respiratory 18 Rate Blood Pressure 122/59 O2 Sat by Pulse 96 Oximetry Medical Decision Making - Medical Decision Making This is a 26-year-old male who presents for prophylactic herpes labialis medication. Thorough history and examination were performed. He does have history of cold sores. Patient is not experiencing symptoms however his girlfriend is currently experiencing an oral outbreak. I will prophylactically treat patient with acyclovir. Return parameters discussed. Patient verbalizes understanding and is agreeable to this plan. Dr. Allen is my attending. Disposition Clinical Impression: History of herpes labialis Disposition: HOME SELF-CARE Condition: Good Additional Instructions: Please take medication as directed. Follow-up with primary care provider one to 2 days. Return to the emergency department if you experience new, concerning, or worsening symptoms. Prescriptions: Acyclovir 400 mg PO TID #15 tablet Is patient prescribed a controlled substance at d/c from ED?: No Referrals: Tori Last MD [Primary Care Provider] - 1-2 days Time of Disposition: 15:32
== END 2021-06-12 15:46 | disposition home or self-care (01) ==
LOC: EC 14:25
DX: Z76.0 Encounter for issue of repeat prescription (principal); Z86.19 Personal history of other infectious and parasitic diseases; J44.9 Chronic obstructive pulmonary disease, unspecified; F17.200 Nicotine dependence, unspecified, uncomplicated; F12.90 Cannabis use, unspecified, uncomplicated; Z79.51 Long term (current) use of inhaled steroids; Z79.52 Long term (current) use of systemic steroids; Z79.899 Other long term (current) drug therapy
CPT/HCPCS: 99282

== ENCOUNTER 2022-11-16 13:08 | Emergency (ER) | payer OTHER ==
--- NOTE | 2022-11-16 14:50 | ED ---
Animal Bite HPI - General Chief Complaint: Animal Bite Stated Complaint: left arm cat bite Time Seen by Provider: 11/16/22 14:06 Source: patient Mode of arrival: ambulatory Limitations: no limitations - History of Present Illness Initial Comments: 27-year-old male with a past medical history significant for MRSA presents to the ED with a chief complaint of cat bite. Patient states last night while trying to move their cat and the cat was upset whenever moving to the car and bit the patient's left hand. Vaccine for rabies. Tetanus status up-to-date. Since last night, reports redness, swelling, and pain of the left hand. Denies fever. No other complaints. - Related Data Previous Rx's Medication Instructions Recorded Albuterol Nebulized [Ventolin 2.5 mg INHALATION Q4H PRN #25 nebu 05/05/16 Nebulized] methylPREDNISolone [Medrol Dose 4 mg PO DIRECTED #1 pack 05/05/16 Pack] Ibuprofen [Motrin] 600 mg PO Q8HR PRN #20 tab 10/13/20 Albuterol Inhaler [Ventolin Hfa 2 puff INHALATION RT-QID #18 gm 11/27/20 Inhaler] Azithromycin [Zithromax Tri-Ronnell] 500 mg PO DAILY #3 tab 11/27/20 predniSONE [Deltasone] 40 mg PO DAILY #8 tab 11/27/20 Acyclovir [Zovirax] 400 mg PO TID #15 tablet 06/12/21 Sulfamethox-Tmp 800-160Mg [Bactrim 1 tab PO Q12HR #28 tab 06/18/22 DS 800-160 mg] Sulfamethox-Tmp 800-160Mg [Bactrim 1 each PO Q12HR 5 Days #10 tab 11/16/22 Ds] metroNIDAZOLE [Flagyl] 500 mg PO TID 5 Days #15 tab 11/16/22 Allergies Allergy/AdvReac Type Severity Reaction Status Date / Time amoxicillin AdvReac Unknown Verified 11/16/22 13:42 Childhood Review of Systems ROS Statement: Those systems with pertinent positive or pertinent negative responses have been documented in the HPI. ROS Other: All systems not noted in ROS Statement are negative. Past Medical History Past Medical History: Asthma, COPD Additional Past Medical History / Comment(s): scoliosis History of Any Multi-Drug Resistant Organisms: MRSA Date of last positivie culture/infection: 2010 MDRO Source:: arm Past Surgical History: No Surgical Hx Reported Past Psychological History: No Psychological Hx Reported Smoking Status: Current some day smoker Past Alcohol Use History: Occasional Past Drug Use History: Heroin, Marijuana General Exam Limitations: no limitations General appearance: alert, in no apparent distress Neck exam: Present: normal inspection Respiratory exam: Present: normal lung sounds bilaterally Cardiovascular Exam: Present: regular rate, normal rhythm GI/Abdominal exam: Present: soft Extremities exam: Present: other (Left hand has warmth, erythema, tenderness to palpation surrounding the first metacarpal on the dorsal surface. Patient does have significant pain on passive extension of the left thumb.) Neurological exam: Present: alert, oriented X3 Skin exam: Present: warm, dry Course Vital Signs 11/16/22 13:39 Temperature 98.4 F Pulse Rate 80 Respiratory 18 Rate Blood Pressure 122/83 O2 Sat by Pulse 98 Oximetry Medical Decision Making - Medical Decision Making Was pt. sent in by a medical professional or institution (, PA, CAN STERILIZER, urgent care, hospital, or jail...) When possible be specific @ -No Did you speak to anyone other than the patient for history (EMS, parent, family, police, friend...)? What history was obtained from this source @ -No Did you review nursing and triage notes (agree or disagree)? Why? @ -I reviewed and agree with nursing and triage notes Were old charts reviewed (outside hosp., previous admission, EMS record, old EKG, old radiological studies, urgent care reports/EKG's, jail records)? Report findings @ -No old charts were reviewed Differential Diagnosis (chest pain, altered mental status, abdominal pain women, abdominal pain men, vaginal bleeding, weakness, fever, dyspnea, syncope, headache, dizziness, GI bleed, back pain, seizure, CVA, palpatations, mental health, musculoskeletal)? @ -MRSA, cellulitis, flexor tenosynovitis. This is not meant to be an all- inclusive list. EKG interpreted by me (3pts min.). @ -None X-rays interpreted by me (1pt min.). @ -X-ray interpreted by me showing no acute findings. CT interpreted by me (1pt min.). @ -None done U/S interpreted by me (1pt. min.). @ -None done What testing was considered but not performed or refused? (CT, X-rays, U/S, labs)? Why? @ -None What meds were considered but not given or refused? Why? @ -None Did you discuss the management of the patient with other professionals (professionals i.e. , PA, CAN STERILIZER, lab, RT, psych nurse, social services analyst, general surgery physician assistant, teacher, compliance review officer, child support case officer)? Give summary @ -No Was smoking cessation discussed for >3mins.? @ -No Was critical care preformed (if so, how long)? @ -No Were there social determinants of health that impacted care today? How? (Homelessness, low income, unemployed, alcoholism, drug addiction, transportation, low edu. Level, literacy, decrease access to med. care, retirement, rehab)? @ -No Was there de-escalation of care discussed even if they declined (Discuss DNR or withdrawal of care, Hospice)? DNR status @ -No What co-morbidities impacted this encounter? (DM, HTN, Smoking, COPD, CAD, Cancer, CVA, ARF, Chemo, Hep., AIDS, mental health diagnosis, sleep apnea, morbid obesity)? @ -None Was patient admitted / discharged? Hospital course, mention meds given and route, prescriptions, significant lab abnormalities, going to OR and other pertinent info. @ -AMA 27-year-old male with a past medical history significant for MRSA presenting with Bite to left hand. Exam shows findings concerning for flexor tenosynovitis of the left first finger. X-ray shows no acute findings. With exam findings and concern for flexor tenosynovitis patient was advised admission to [facility] with consults to infectious disease and orthopedics however at this time patient declined and would like to leave AGAINST MEDICAL ADVICE. Patient was sent prescription for Bactrim and Flagyl as patient has known ALLERGY to amoxicillin. Undiagnosed new problem with uncertain prognosis? @ -Yes, Bite to left hand with concern for flexor tenosynovitis Drug Therapy requiring intensive monitoring for toxicity (Heparin, Nitro, Insulin, Cardizem)? @ -No Were any procedures done? @ -No Diagnosis/symptom? @ Cat Bite left hand, cellulitis Acute, or Chronic, or Acute on Chronic? @ -Acute Uncomplicated (without systemic symptoms) or Complicated (systemic symptoms)? @ -Uncomplicated Side effects of treatment? @ -No Exacerbation, Progression, or Severe Exacerbation? @ -No Poses a threat to life or bodily function? How? (Chest pain, [place], [place], pneumonia, PE, COPD, DKA, ARF, appy, cholecystitis, CVA, Diverticulitis, Homicidal, Suicidal, threat to staff... and all critical care pts) @ -Yes, significant infection Disposition Clinical Impression: Cat bite, Cellulitis Disposition: LEFT AGAINST MEDICAL ADVICE Instructions (If sedation given, give patient instructions): Animal Bite (ED) Additional Instructions: Please return to the Emergency Department if symptoms worsen or any other concerns. Prescriptions: Sulfamethox-Tmp 800-160Mg [Bactrim Ds] 1 each PO Q12HR 5 Days #10 tab metroNIDAZOLE [Flagyl] 500 mg PO TID 5 Days #15 tab Is patient prescribed a controlled substance at d/c from ED?: No Referrals: Cally Choudhury [Primary Care Provider] - 1-2 days Time of Disposition: 15:56
[2022-11-16] MEDS ORDERED: KETOROLAC 15 MG/ML 1 ML VIAL IM STA (14:51)
--- NOTE | 2022-11-16 15:42 | XR ---
EXAMINATION TYPE: XR hand complete LT DATE OF EXAM: 11/16/2022 3:38 PM CLINICAL INDICATION:Male, 27 years old with history of infection; COMPARISON: None TECHNIQUE: XR hand complete LT Frontal, lateral and oblique views were obtained. FINDINGS: Normal alignment of the visualized joints. No acute osseous pathology is identified. No e vidence of soft tissue swelling. IMPRESSION: 1. No acute osseous pathology. 2. Soft tissue swelling without evidence for radiopaque foreign body.
[2022-11-16 16:16] VITALS: BP 126/78; PULSE 82; RESP 20; TEMP 98.8
== END 2022-11-16 16:35 | disposition left against medical advice (07) ==
LOC: EC 13:08
DX: S61.452A Open bite of left hand, initial encounter (principal); L03.114 Cellulitis of left upper limb; J44.9 Chronic obstructive pulmonary disease, unspecified; F17.200 Nicotine dependence, unspecified, uncomplicated; F12.90 Cannabis use, unspecified, uncomplicated; F11.90 Opioid use, unspecified, uncomplicated; Z53.29 Procedure and treatment not carried out because of patient's decision for other reasons; Z88.0 Allergy status to penicillin; W55.01XA Bitten by cat, initial encounter
CPT/HCPCS: 73130; 99283; 96372; J1885

== ENCOUNTER 2023-10-29 19:35 | Emergency (ER) | payer OTHER ==
--- NOTE | 2023-10-29 20:11 | ED ---
General Adult HPI - General Chief complaint: Shortness of Breath Stated complaint: DAVID Time Seen by Provider: 10/29/23 20:08 Source: patient Mode of arrival: ambulatory Limitations: no limitations - History of Present Illness Initial comments: Patient presents to the ED with his girlfriend for evaluation. Patient states that he recently moved into his friend's trailer, and he has had "an asthma attack" for the past 2 days. Patient states that he was seen in an ER in [place] yesterday and given "an updraft treatment and prednisone" there with some im provement. Patient states that he left there "early" though before getting a prescription for prednisone, and he only had the 1 dose of prednisone yesterday. Patient states that he is also out of his albuterol inhaler. Patient admits to having mild nasal congestion and a mild cough as well. Patient denies having any pain, fever or chills, headache, sore throat, chest pain, hemoptysis, palpitations, dizziness, abdominal pain, nausea/vomiting/diarrhea, decreased urine output, leg or calf swelling or pain, or any other symptoms or complaints. - Related Data Previous Rx's Medication Instructions Recorded Albuterol Nebulized [Ventolin 2.5 mg INHALATION Q4H PRN #25 nebu 05/05/16 Nebulized] methylPREDNISolone [Medrol Dose 4 mg PO DIRECTED #1 pack 05/05/16 Pack] Ibuprofen [Motrin] 600 mg PO Q8HR PRN #20 tab 10/13/20 Albuterol Inhaler [Ventolin Hfa 2 puff INHALATION RT-QID #18 gm 11/27/20 Inhaler] Azithromycin [Zithromax Tri-Ronnell] 500 mg PO DAILY #3 tab 11/27/20 predniSONE [Deltasone] 40 mg PO DAILY #8 tab 11/27/20 Acyclovir [Zovirax] 400 mg PO TID #15 tablet 06/12/21 Sulfamethox-Tmp 800-160Mg [Bactrim 1 tab PO Q12HR #28 tab 06/18/22 DS 800-160 mg] Sulfamethox-Tmp 800-160Mg [Bactrim 1 each PO Q12HR 5 Days #10 tab 11/16/22 Ds] metroNIDAZOLE [Flagyl] 500 mg PO TID 5 Days #15 tab 11/16/22 predniSONE [Deltasone] 20 mg PO BID #10 tab 10/29/23 Allergies Allergy/AdvReac Type Severity Reaction Status Date / Time amoxicillin AdvReac Unknown Verified 10/29/23 19:39 Childhood Review of Systems ROS Statement: Those systems with pertinent positive or pertinent negative responses have been documented in the HPI. ROS Other: All systems not noted in ROS Statement are negative. Past Medical History Past Medical History: Asthma, COPD Additional Past Medical History / Comment(s): scoliosis History of Any Multi-Drug Resistant Organisms: MRSA Date of last positivie culture/infection: 2009 MDRO Source:: arm Past Surgical History: No Surgical Hx Reported Past Psychological History: No Psychological Hx Reported Smoking Status: Former smoker Past Alcohol Use History: Occasional Past Drug Use History: Heroin, Marijuana General Exam Limitations: no limitations General appearance: alert Eye exam: Present: normal appearance ENT exam: Present: normal oropharynx, mucous membranes moist Neck exam: Present: other (Trachea is in midline) Respiratory exam: Present: wheezes, prolonged expiratory. Absent: respiratory distress, rales, rhonchi, stridor Cardiovascular Exam: Present: regular rate, normal rhythm, normal heart sounds, other (Normal radial pulses bilaterally) GI/Abdominal exam: Present: soft. Absent: distended, tenderness, guarding Extremities exam: Present: other (Negative Homans' sign bilaterally). Absent: tenderness, pedal edema, calf tenderness Neurological exam: Present: alert, oriented X3 Psychiatric exam: Present: normal affect Skin exam: Present: warm, dry, normal color Course Vital Signs 10/29/23 10/29/23 19:36 20:52 Temperature 97.3 F L Pulse Rate 101 H Respiratory 24 24 Rate Blood Pressure 113/68 O2 Sat by Pulse 98 Oximetry - Reevaluation(s) Reevaluation #1: 10/29/23 22:52 Patient's wheezing has now improved on examination, and he continues to have a normal room air oxygen saturation. Patient states that his dyspnea is improved as well. Patient denies development of any new symptoms while in the ED. Patient has been provided with an albuterol inhaler to go home with. Patient was counseled about COVID infection and asthma exacerbations, and he was clearly explained return and follow-up instructions. He was instructed to follow-up closely with his primary care provider. He feels comfortable with this plan. Medical Decision Making - Medical Decision Making Was pt. sent in by a medical professional or institution (SAMIR Gamez, PRIMARY EDUCATION PROFESSOR, urgent care, hospital, or fdc...) When possible be specific @ -No Did you speak to anyone other than the patient for history (EMS, parent, family, police, friend...)? What history was obtained from this source @ -No Did you review nursing and triage notes (agree or disagree)? Why? @ -I reviewed and agree with nursing and triage notes Were old charts reviewed (outside hosp., previous admission, EMS record, old EKG, old radiological studies, urgent care reports/EKG's, fdc records)? Report findings @ -No old charts were reviewed Differential Diagnosis (chest pain, altered mental status, abdominal pain women, abdominal pain men, vaginal bleeding, weakness, fever, dyspnea, syncope, headache, dizziness, GI bleed, back pain, seizure, CVA, palpatations, mental health, musculoskeletal)? @ -Asthma, COPD, reactive airway disease, bronchitis, pneumonia, viral URI, RSV, influenza, COVID, allergies, this is not a complete wrist EKG interpreted by me (3pts min.). @ -None done X-rays interpreted by me (1pt min.). @ -Chest x-ray was reviewed myself and shows no acute cardiopulmonary disease/process. CT interpreted by me (1pt min.). @ -None done U/S interpreted by me (1pt. min.). @ -None done What testing was considered but not performed or refused? (CT, X-rays, U/S, labs)? Why? @ -None What meds were considered but not given or refused? Why? @ -None Did you discuss the management of the patient with other professionals (professionals i.e. SAMIR Gamez, PRIMARY EDUCATION PROFESSOR, lab, RT, psych nurse, social worker health services, sawdust machine operator, teacher, booking officer, casey saw operator)? Give summary @ -No Was smoking cessation discussed for >3mins.? @ -No Was critical care preformed (if so, how long)? @ -No Were there social determinants of health that impacted care today? How? (Homelessness, low income, unemployed, alcoholism, drug addiction, transportation, low edu. Level, literacy, decrease access to med. care, senior care, rehab)? @ -No Was there de-escalation of care discussed even if they declined (Discuss DNR or withdrawal of care, Hospice)? DNR status @ -No What co-morbidities impacted this encounter? (DM, HTN, Smoking, COPD, CAD, Cancer, CVA, ARF, Chemo, Hep., AIDS, mental health diagnosis, sleep apnea, morbid obesity)? @ -None Was patient admitted / discharged? Hospital course, mention meds given and route, prescriptions, significant lab abnormalities, going to OR and other pertinent info. @ -Patient's dyspnea and wheezing have improved with DuoNeb treatment in the ED. Patient was given a dose of prednisone in the ED, and he was also provided with an albuterol inhaler to go home with. A prescription for a short course of prednisone was sent to the patient's pharmacy. Patient was counseled about COVID, asthma exacerbations and isolation precautions. Will discharge patient home with his girlfriend at this time. Patient feels comfortable with this plan. Undiagnosed new problem with uncertain prognosis? @ -No Drug Therapy requiring intensive monitoring for toxicity (Heparin, Nitro, Insulin, Cardizem)? @ -No Were any procedures done? @ -No Diagnosis/symptom? @ -COVID infection Acute, or Chronic, or Acute on Chronic? @ -Acute Uncomplicated (without systemic symptoms) or Complicated (systemic symptoms)? @ -Default Side effects of treatment? @ -No Exacerbation, Progression, or Severe Exacerbation? @ -No Poses a threat to life or bodily function? How? (Chest pain, [place], ND, pneumonia, PE, COPD, DKA, ARF, appy, cholecystitis, CVA, Diverticulitis, Homicidal, Suicidal, threat to staff... and all critical care pts) @ -No Diagnosis/symptom? @ -Asthma exacerbation Acute, or Chronic, or Acute on Chronic? @ -Acute Uncomplicated (without systemic symptoms) or Complicated (systemic symptoms)? @ -Default Side effects of treatment? @ -None Exacerbation, Progression, or Severe Exacerbation] @ -No Poses a threat to life or bodily function? @ -No - Lab Data Lab Results 10/29/23 Range/Units 20:48 Influenza Type A (PCR) Not Detected (Not Detectd) Influenza Type B (PCR) Not Detected (Not Detectd) RSV (PCR) Not Detected (Not Detectd) SARS-CoV-2 (PCR) Detected A (Not Detectd) - Radiology Data Chest x-ray: No acute cardiopulmonary disease/process. Disposition Clinical Impression: Asthma with acute exacerbation, COVID Disposition: HOME SELF-CARE Condition: Stable Instructions (If sedation given, give patient instructions): Asthma (ED), COVID-19 (Coronavirus Disease 2019) (ED) Additional Instructions: Return to the ER immediately should you develop increased shortness of breath/trouble breathing, any significant pain, feeling dizzy or faint, or new or worsening symptoms. Follow-up closely with your primary care provider. Prescriptions: predniSONE [Deltasone] 20 mg PO BID #10 tab Is patient prescribed a controlled substance at d/c from ED?: No Referrals: Cally Choudhury [REFERRING] - 1-2 days Time of Disposition: 22:57
[2023-10-29] MEDS: predniSONE 20 MG TAB PO STA (20:44)
--- NOTE | 2023-10-29 20:51 | XR ---
EXAMINATION TYPE: XR chest 2V DATE OF EXAM: 10/29/2023 8:40 PM CLINICAL INDICATION: Male, 28 years old with history of difficulty breathing; [facility] COMPARISON: 08/27/2020 TECHNIQUE: XR chest 2V Frontal view of the chest. FINDINGS: Lungs/Pleura: There is no evidence of pleural effusion, focal consolidation, or pneumothorax. Pulmonary vascularity: Unremarkable. Heart/mediastinum: Cardiomediastinal silhouette is unremarkable. Musculoskeletal: No acute osseous pathology. IMPRESSION: No acute cardiopulmonary disease/process. [facility], , 10/29/2023 8:48 PM
[2023-10-29] MEDS: ALBUTEROL HFA INHALER INHALATION STA (22:23)
[2023-10-29] MEDS: IPRATROPIUM-ALBUTEROL 3 ML NEB INHALATION STA (22:24)
[2023-10-29 23:04] VITALS: BP 123/67; PULSE 72; RESP 18; TEMP 98.1
== END 2023-10-29 23:01 | disposition home or self-care (01) ==
LOC: EC 19:35
DX: R06.02 Shortness of breath
CPT/HCPCS: 71046; 87636; 94640; 99285